=== PATIENT | male | born 1975 | race African-American/Black ===

== ENCOUNTER 2021-07-28 08:49 | Emergency (ER) | payer OTHER, SELFPAY ==
[2021-07-28] VITALS (12 sets, daily range): BP systolic 130–147; BP diastolic 80–84; PULSE 44–98; RESP 14–20; TEMP 36.2; O2SAT 96–100; BMI 24.3
--- NOTE | 2021-07-28 08:56 | ED.ABDPAIN ---
HPI - Abdominal Pain General Chief Complaint: Abdominal Pain Stated Complaint: abdobinal pain Time Seen by Provider: 07/28/21 08:54 History of Present Illness HPI narrative: Patient is a 46-year-old male with history of hypertension presenting today with severe left sided abdominal pain. This is actually started yesterday progressively has gotten worse. Does seem come in waves he has got some left flank pain but no radiation his groin. He vomited once in route with EMS. Pain seems to be uncontrollable. He has not had his bowel movement today but had 1 yesterday. No prior surgeries. No fever or chills. He states that he does smoke marijuana daily and has for about the last 6 months but has not been able to do so over the last couple of days. Related Data Home Medications Medication Instructions Recorded Confirmed ezetimibe 10 mg-simvastatin 20 mg 1 tab PO HS #0 05/05/16 tablet (Vytorin) Previous Rx's Medication Instructions Recorded meclizine 25 mg chewable tablet 25 mg PO Q6HP PRN #20 05/05/16 (Bonine) hydrocodone 5 mg-acetaminophen 325 1 tab PO Q6H PRN #10 tab 07/28/21 mg tablet ondansetron 4 mg disintegrating 4 mg PO Q8H PRN #10 tab 07/28/21 tablet Allergies Allergy/AdvReac Type Severity Reaction Status Date / Time oxycodone [OXYCODONE] Allergy Unknown Verified 07/28/21 10:34 Review of Systems Review of Systems Narrative: GENERAL: Denies chills, fatigue, malaise, fever, sweats, travel HEENT: Denies sinus pain, ear pain, sore throat, difficulty swallowing, neck pain RESPIRATORY: Denies dyspnea, cough, wheezing, hemoptysis, sputum. CARDIOVASCULAR: Denies chest pain, palpitations, orthopnea, edema GASTROINTESTINAL: See HPI : Denies dysuria, frequency, incontinence, hematuria, urinary retention, flank pain. MUSCULOSKELETAL: Denies weakness, joint pain, or bony pain SKIN: No rash, no erythema, no pruritus NEUROLOGIC: Denies weakness, dizziness, headache, numbness, change in speech, confusion PSYCHIATRIC: No concerning psychosocial issues. 12 point review of systems is negative except for those stated above and HPI Exam Initial Vital Signs Initial Vital Signs: Vital Signs Temperature 97.1 F L 07/28/21 09:16 Pulse Rate 44 L 07/28/21 09:16 Respiratory Rate 20 07/28/21 09:16 Blood Pressure 147/84 H 07/28/21 09:16 Pulse Oximetry 100 07/28/21 09:16 GENERAL: Alert 46-year-old male appears severely uncomfortable and in pain HEENT: Head atraumatic,EOMI, pupils reactive, face symmetric, moist mucous membranes CARDIOVASCULAR: Regular rate and rhythm without murmurs, rubs or gallops. RESPIRATORY: Breath sounds equal bilaterally, no wheezes rales or rhonchi. GI: Severe left-sided pain no guarding no rebound no distension extremely tender to very light touch : Left CVA tenderness EXTREMITIES: Normal range of motion, no clubbing or edema. Neurovascularly intact NEUROLOGICAL: Alert and oriented x4.Normal gait and speech. SKIN: Warm, dry, no laceration, no petechiae, no rashes or lesions. Course Orders Ordered: ED Orders 07/28/21 11:30 Urine Microscopic Stat Discontinued Medications Hydromorphone HCl (Hydromorphone 0.5 Mg Inj) 1 mg IV NOW ONE Stop: 07/28/21 08:55 Last Admin: 07/28/21 09:32 Dose: 1 mg Documented by: NICHOLAS Sodium Chloride (Normal Saline 0.9%) 1,000 mls @ 1,000 mls/hr IV CONT SALOMÓN Last Infusion: 07/28/21 10:26 Dose: 0 mls/hr Documented by: Admin: 07/28/21 09:32 Dose: 1,000 mls/hr Documented by: NICHOLAS Sodium Chloride (Normal Saline 0.9%) 1,000 mls @ 1,000 mls/hr IV BOLUS ONE Stop: 07/28/21 11:09 Last Infusion: 07/28/21 11:56 Dose: 0 mls/hr Documented by: Admin: 07/28/21 10:26 Dose: 1,000 mls/hr Documented by: NICHOLAS Ketorolac Tromethamine (Ketorolac 30 Mg/Ml Vial) 15 mg IV NOW ONE Stop: 07/28/21 10:11 Last Admin: 07/28/21 10:26 Dose: 15 mg Documented by: NICHOLAS Vital Signs Vital signs: Vital Signs - 8 hr 07/28/21 12:30 07/28/21 12:45 07/28/21 12:47 Pulse Rate 98 H 97 H Respiratory Rate 18 Blood Pressure 130/80 Pulse Oximetry 97 98 07/28/21 12:50 Pulse Rate Respiratory Rate Blood Pressure 130/80 Pulse Oximetry MDM - Abdominal Pain Lab Data Result diagrams: 07/28/21 09:07 07/28/21 09:07 Labs: Lab Results 07/28/21 07/28/21 07/28/21 Range/Units 09:07 09:07 09:07 WBC 7.3 (4.5-11.0) X10^3/uL RBC 4.48 L (4.5-5.9) X10^6/uL Hgb 12.7 L (13.5-17.5) g/dL Hct 38.6 L (41-53) % MCV 86.2 (80-100) fL MCH 28.4 (26-34) PG MCHC 32.9 (30-36) % RDW 13.5 (11.6-14.8) % Plt Count 206 (150-400) X10^3/uL Neut % (Auto) 61.9 (50-75) % Lymph % (Auto) 31.2 (25-40) % [place] % (Auto) 5.5 (3-14) % Eos % (Auto) 0.9 L (2-4) % Baso % (Auto) 0.5 (0-2) % Neut # (Auto) 4500 (4578-6095) /uL Lymph # (Auto) 2300 (0346-6768) /uL [place] # (Auto) 400 (0-900) /uL Eos # (Auto) 100 (0-450) /uL Baso # (Auto) 0 (0-100) /uL Sodium 136 L (137-145) mmol/L Potassium 3.1 L (3.4-5.1) mmol/L Chloride 103 (98-107) mmol/L Carbon Dioxide 19 L (22-32) mmol/L BUN 14 (9-20) mg/dL Creatinine 1.40 H (0.66-1.25) mg/dL Estimated GFR > 60 (>60) mL/min BUN/Creatinine Ratio 10.0 (6-22) Glucose 186 H (70-100) mg/dL Lactate 5.4 H* (0.7-2.1) mmol/L Calcium 8.7 (8.4-10.2) mg/dL Total Bilirubin 0.5 (0.2-1.3) mg/dL AST 31 (17-59) IU/L ALT 30 (<50) IU/L Alkaline Phosphatase 59 (38-126) U/L Total Protein 6.8 (6.3-8.2) g/dL Albumin 4.1 (3.5-5.0) g/dL Globulin 2.7 (1.7-4.1) g/dL Albumin/Globulin Ratio 1.5 (1.0-2.8) Lipase 113 (23-300) U/L Urine RBC (0-5/HPF) Urine WBC (0-5/HPF) Urine Bacteria (None) Ur Culture Indicated? SARS-CoV-2 (PCR) (Negative) 07/28/21 07/28/21 07/28/21 Range/Units 09:51 11:30 11:33 WBC (4.5-11.0) X10^3/uL RBC (4.5-5.9) X10^6/uL Hgb (13.5-17.5) g/dL Hct (41-53) % MCV (80-100) fL MCH (26-34) PG MCHC (30-36) % RDW (11.6-14.8) % Plt Count (150-400) X10^3/uL Neut % (Auto) (50-75) % Lymph % (Auto) (25-40) % [place] % (Auto) (3-14) % Eos % (Auto) (2-4) % Baso % (Auto) (0-2) % Neut # (Auto) (6180-3901) /uL Lymph # (Auto) (9159-3920) /uL [place] # (Auto) (0-900) /uL Eos # (Auto) (0-450) /uL Baso # (Auto) (0-100) /uL Sodium (137-145) mmol/L Potassium (3.4-5.1) mmol/L Chloride (98-107) mmol/L Carbon Dioxide (22-32) mmol/L BUN (9-20) mg/dL Creatinine (0.66-1.25) mg/dL Estimated GFR (>60) mL/min BUN/Creatinine Ratio (6-22) Glucose (70-100) mg/dL Lactate 3.1 H (0.7-2.1) mmol/L Calcium (8.4-10.2) mg/dL Total Bilirubin (0.2-1.3) mg/dL AST (17-59) IU/L ALT (<50) IU/L Alkaline Phosphatase (38-126) U/L Total Protein (6.3-8.2) g/dL Albumin (3.5-5.0) g/dL Globulin (1.7-4.1) g/dL Albumin/Globulin Ratio (1.0-2.8) Lipase (23-300) U/L Urine RBC 10-30/hpf H (0-5/HPF) Urine WBC None seen (0-5/HPF) Urine Bacteria None seen (None) Ur Culture Indicated? Cult not indicated SARS-CoV-2 (PCR) Negative (Negative) Point of care testing: Urine Dip Bedside Urine Glucose 100 mg/dl Bedside Urine Bilirubin - Negative Bedside Urine Ketone +/- 5 Urine Specific [place] 1.010 Bedside Urine pH 6.5 Bedside Urine Protein +++ 300 Bedside Urine Urobilinogen - Negative Bedside Urine Nitrite - Negative Bedside Urine Leukocytes - Negative Esterase Imaging Data CT scan - abdomen/pelvis: Radiologist's Impression: Patient: Marbin Peralta MR#: [id number] : 1975 Acct:[id number] Age/Sex: 46 / M Date of Service: 07/28/21 Loc: ED Accession Number: [id number] ?? Procedure: CT abdomen pelvis w con Ordering Provider: Colleen Garber D.O. PROCEDURE:? CT ABDOMEN PELVIS W CON ? INDICATIONS:? severe left sided pain sudden onset ? TECHNIQUE:? After the administration of oral and IV contrast, axial sections were acquired from the lung bases to the pubic symphysis.? Coronal and sagittal reformats were performed.? For radiation dose reduction, the following was used:? automated exposure control, adjustment of mA and/or kV according to patient size. ? COMPARISON:? None. ? FINDINGS:? Image quality:? Excellent.? ? Lung bases:? Unremarkable.? ? Heart:? No significant findings. ? ? ABDOMEN: Liver:? Normal contour and enhancement.? Scattered hypoattenuating lesions are seen measuring up to 1 cm, most consistent with cysts.? ? Gallbladder:? Unremarkable.? ? Biliary ducts:? Unremarkable.? ? Pancreas:? Unremarkable.? ? Spleen:? Unremarkable.? ? Adrenal Glands:? Unremarkable.? ? Kidneys and Ureters:? Punctate calculus in the left lower pole (measuring less than 3 mm).? Delayed left nephrogram with hydronephrosis and perinephric stranding as well as hydroureter.? A 3 mm calculus is seen in the distal left ureter, just prior to the UVJ. Normal enhancement of the right kidney without evidence of nephrolithiasis or obstructive uropathy. ? Stomach and Bowel:? No evidence of intestinal obstruction or inflammatory change.? Normal appearance of the appendix. Peritoneum:? No abnormal intraperitoneal fluid.? No free air.? ? Ventral Wall: ? No hernia.? Abdominal Nodes:? No retroperitoneal or mesenteric adenopathy by size criteria.? Vessels:? Aorta and inferior vena cava are normal in size.? ? PELVIS: Pelvic Organs:? Unremarkable.? ? Bladder:? Unremarkable.? ? Pelvic Nodes: No enlarged lymph nodes.? Miscellaneous:? Bilateral fat containing inguinal hernias versus lipomas of the spermatic cord. ? ? A 1.3 x 0.5 cm fat attenuation lesion is seen in the right psoas, compatible intramuscular hematoma. ? Bones:? Unremarkable.? IMPRESSION:? ? 1. Left hydronephrosis and perinephric stranding with 3 mm calculus in the distal ureter. ? ? Dictated by: Desmond Chew M.D. on 07/28/2021 at 9:30 ? ? MDM Narrative Medical decision making narrative: Patient is in quite a bit of pain initially is given dilaudid. CT does confirm a 3 mm left-sided kidney stone. Lactate is concerning an elevated at 5.4 , it has improved with 2 L of fluid to 3.1. Patient overall appears very well. He has no leukocytosis he is afebrile he has no UTI. Pain actually improved from most with Toradol. I think lactate is more elevated is from severe pain rather than sepsis in infection. He feels comfortable going home at this time. Discharge Plan Departure Patient Disposition: Home Clinical Impression: Kidney stone on left side Instructions: DI for Kidney Stones Activity Restrictions/Additional Instructions: * You've been diagnosed with kidney stone * What to do: Increase fluid intake, Strain urine, try to catch stone * Please follow-up with your primary care provider in the next 2-3 days, you may require urology consultation please discuss this with -If you should have fever, or pain is uncontrolled with medication at home or any other concerning symptoms return to ER for further evaluation MEDICATIONS Take Motrin 800 mg every 8 hours as needed for pain, Next dose at 6pm Take Sh[place]ler every 6 hours if needed for severe pain Take Zofran every 4-6 hours if needed for nausea CONTROLLED SUBSTANCE DISCHARGE (Narcotoic/benzodiazepine) 1. You have been prescribed narcotic medications, it does have acetaminophen/Tylenol/paracetamol in it so do not take extra Tylenol or Tylenol containing products 2. Please understand that we cannot provide further refills of narcotics, benzodiazepines or controlled substances through the ED and her pain management will need to be through your provider. 3. While on these medications you cannot drive or operate heavy machinery. 4. You cannot sign legal documents or perform any duties such as this. 5. As long as you're taking opiate pain medications he should also be taking a stool softener such as Colace, Dulcolax, MiraLAX or prune juice, to help avoid constipation. Prescriptions: New hydrocodone-acetaminophen 5-325 mg tablet 1 tab PO Q6H PRN (Reason: pain) Qty: 10 0RF ondansetron 4 mg tablet,disintegrating 4 mg PO Q8H PRN (Reason: nausea and vomiting) Qty: 10 0RF No Action ezetimibe-simvastatin [Vytorin 10-20] 10 MG/20 MG tablet 1 tab PO HS Qty: 0 0RF meclizine [Bonine] 25 MG tablet,chewable 25 mg PO Q6HP PRNQty: 20 0RF
--- NOTE | 2021-07-28 09:13 | DI.CT.S_ITS ---
PROCEDURE: CT ABDOMEN PELVIS W CON INDICATIONS: severe left sided pain sudden onset TECHNIQUE: After the administration of oral and IV contrast, axial sections were acquired from the lung bases to the pubic symphysis. Coronal and sagittal reformats were performed. For radiation dose reduction, the following was used: automated exposure control, adjustment of mA and/or kV according to patient size. COMPARISON: None. FINDINGS: Image quality: Excellent. Lung bases: Unremarkable. Heart: No significant findings. ABDOMEN: Liver: Normal contour and enhancement. Scattered hypoattenuating lesions are seen measuring up to 1 cm, most consistent with cysts. Gallbladder: Unremarkable. Biliary ducts: Unremarkable. Pancreas: Unremarkable. Spleen: Unremarkable. Adrenal Glands: Unremarkable. Kidneys and Ureters: Punctate calculus in the left lower pole (measuring less than 3 mm). Delayed left nephrogram with hydronephrosis and perinephric stranding as well as hydroureter. A 3 mm calculus is seen in the distal left ureter, just prior to the UVJ. Normal enhancement of the right kidney without evidence of nephrolithiasis or obstructive uropathy. Stomach and Bowel: No evidence of intestinal obstruction or inflammatory change. Normal appearance of the appendix. Peritoneum: No abnormal intraperitoneal fluid. No free air. Ventral Wall: No hernia. Abdominal Nodes: No retroperitoneal or mesenteric adenopathy by size criteria. Vessels: Aorta and inferior vena cava are normal in size. PELVIS: Pelvic Organs: Unremarkable. Bladder: Unremarkable. Pelvic Nodes: No enlarged lymph nodes. Miscellaneous: Bilateral fat containing inguinal hernias versus lipomas of the spermatic cord. A 1.3 x 0.5 cm fat attenuation lesion is seen in the right psoas, compatible intramuscular hematoma. Bones: Unremarkable. IMPRESSION: 1. Left hydronephrosis and perinephric stranding with 3 mm calculus in the distal ureter. Dictated by: Desmond Chew M.D. on 07/28/2021 at 9:30 Approved by: Desmond Chew M.D. on 07/28/2021 at 9:35
[2021-07-28 09:26] LABS: Add Manual Diff / Slide Review NO; Basophils Absolute Auto 0 /uL (0-100); Basophils Percent Auto 0.5 % (0-2); Eosinophils Absolute Auto 100 /uL (0-450); Eosinophils Percent Auto 0.9 % (2-4); Hematocrit 38.6 % (41-53); Hemoglobin 12.7 g/dL (13.5-17.5); Lymphocytes Absolute Auto 2300 /uL (1100-4500); Lymphocytes Percent Auto 31.2 % (25-40); Mean Corpuscular HGB Conc 32.9 % (30-36); Mean Corpuscular Hemoglobin 28.4 PG (26-34); Mean Corpuscular Volume 86.2 fL (80-100); Monocytes Absolute Auto 400 /uL (0-900); Monocytes Percent Auto 5.5 % (3-14); Neutrophils Absolute Auto 4500 /uL (1500-7000); Neutrophils Percent Auto 61.9 % (50-75); Platelet Count 206 X10^3/uL (150-400); Red Blood Cell Count 4.48 X10^6/uL (4.5-5.9); Red Cell Distribution Width 13.5 % (11.6-14.8); White Blood Cell Count 7.3 X10^3/uL (4.5-11.0)
[2021-07-28] MEDS: SODIUM CHLORIDE 0.9% 1,000 ML 1000 ML IV ×2 (09:32→10:26)
[2021-07-28] MEDS: HYDROMORPHONE 0.5 MG INJ 1 MG IV (09:32)
[2021-07-28 09:35] LABS: Alanine Aminotransferase 30 IU/L (<50); Albumin 4.1 g/dL (3.5-5.0); Albumin Globulin Ratio 1.5 (1.0-2.8); Alkaline Phosphatase 59 U/L (38-126); Aspartate Aminotransferase 31 IU/L (17-59); Bilirubin Total 0.5 mg/dL (0.2-1.3); Blood Urea Nitrogen 14 mg/dL (9-20); Calcium 8.7 mg/dL (8.4-10.2); Carbon Dioxide 19 mmol/L (22-32); Chloride 103 mmol/L (98-107); Estimated Glomerular Filt Rate > 60 mL/min (>60); Globulin 2.7 g/dL (1.7-4.1); Glucose 186 mg/dL (70-100); HEMOLYSIS < 15 (0-50); Lipase 113 U/L (23-300); Potassium 3.1 mmol/L (3.4-5.1); Sodium 136 mmol/L (137-145); Total Protein 6.8 g/dL (6.3-8.2)
[2021-07-28 09:37] LABS: Lactate (Lactic Acid) 5.4 mmol/L (0.7-2.1)
[2021-07-28 10:10] LABS: COVID19 -Nasal RAPID Negative (Negative)
[2021-07-28] MEDS: KETOROLAC 30 MG/ML VIAL 15 MG IV (10:26)
[2021-07-28 11:21] LABS: Reflexed Lactate in 2 Hours Y
[2021-07-28 11:49] LABS: Lactate 2HR (Lactic Acid Rflx) 3.1 mmol/L (0.7-2.1)
[2021-07-28 12:10] LABS: Bacteria Urine None Seen; Culture Indicated Urine Cult Not Indicated; RBC Urine 10-30/HPF (0-5/HPF); WBC Urine None Seen (0-5/HPF)
== END 2021-07-28 12:50 | disposition home or self-care (01) ==
PROVIDERS: Emergency Provider Emergency Medicine
DX: N20.0 Calculus of kidney (principal); R11.10 Vomiting, unspecified; Z20.822 Contact with and (suspected) exposure to COVID-19
CPT/HCPCS: 36415; 74177; 80053; 81003; 81015; 83605; 83690; 85025; 87635; 96361; 96374; 96375; 99284; C9803; J1170; J1885

== ENCOUNTER → 2021-12-07 12:16 | Outpatient (CLI) | payer OTHER, SELFPAY ==
--- NOTE | 2021-12-07 12:23 | DI.RAD.S_ITS ---
PROCEDURE: XR KUB INDICATIONS: Kidney stone LEFT SIDE TECHNIQUE: One view of the abdomen acquired. COMPARISON: [facility], CT, CT ABDOMEN PELVIS W CON, 07/28/2021, 9:06. FINDINGS: Surgical changes and devices: None. Bowel: Bowel gas pattern is normal. Soft tissues: No suspicious abdominal calcifications. Visualized solid organ contours appear normal in size. Bones: No suspicious bony lesions. IMPRESSION: 1. Nonspecific bowel gas pattern. 2. No definite pathologic calcifications identified. Dictated by: Pablo Millard M.D. on 12/07/2021 at 14:15 Approved by: Pablo Millard M.D. on 12/07/2021 at 14:19
== END ==
PROVIDERS: Referring Provider Urology; Visit Provider Urology
DX: N20.0 Calculus of kidney (principal)
CPT/HCPCS: 74018

== ENCOUNTER → 2021-12-09 12:49 | Outpatient (CLI) | payer OTHER, SELFPAY ==
[2021-12-14 15:10] LABS: Ca oxalate dihydrate 70 % (.); Ca oxalate monohydr 25 % (.); Hydroxyapatite 5 % (.); Size 5x3 mm (.)
== END ==
PROVIDERS: Visit Provider Urology
DX: N20.0 Calculus of kidney (principal); R31.29 Other microscopic hematuria; R19.5 Other fecal abnormalities; R10.32 Left lower quadrant pain; R11.0 Nausea
CPT/HCPCS: 82365; 99214

== ENCOUNTER → 2021-12-31 12:00 | Outpatient (CLI) | payer OTHER, SELFPAY ==
--- NOTE | 2021-12-31 12:01 | DI.CT.S_ITS ---
PROCEDURE: CT IVP A/P W/WO INDICATIONS: Kidney stone TECHNIQUE: Optional 5 mm thick noncontrast images acquired from the diaphragm to the symphysis pubis. After the administration of intravenous contrast, 5 mm thick images acquired from the diaphragm to the symphysis pubis after a 10-minute delay. 2 mm thick coronal and sagittal reformats were then performed of the kidneys and ureters. For radiation dose reduction, the following was used: automated exposure control, adjustment of mA and/or kV according to patient size. COMPARISON: None. FINDINGS: Image quality: Excellent. Lung bases: Lung bases are clear. Heart size is normal. Urinary system: Both kidneys are normal in size, without hydronephrosis. There is a 2 mm nonobstructing left middle pole renal stone. There is a faint 1 mm nonobstructing right lower pole stone. No perinephric fat stranding. There is normal bilateral renal enhancement. Renal calyces appear normal in morphology when filled with contrast. Opacified portions of both ureters demonstrate normal caliber. Bladder wall thickness is normal. No calcified bladder stones. Other solid organs: Liver is normal in size and enhancement. Tiny low-density liver lesions are consistent with cysts versus hemangiomata. No suspicious liver lesions. Gallbladder is unremarkable. Biliary system is non dilated. Pancreas enhances normally. Spleen is normal in size and enhancement. No adrenal nodules. Peritoneum and bowel: Bowel loops demonstrate normal wall thickness and caliber. No free fluid or air. Nodes and vessels: No retroperitoneal or mesenteric adenopathy by size criteria. Aorta and inferior vena cava are normal in size. Abdominal wall: No ventral hernias. Pelvis: No pathologic free pelvic fluid. No inguinal hernias or adenopathy. Bones: No suspicious bony lesions. No vertebral body compression fractures. IMPRESSION: 1. 2 mm left renal stone and 1 mm right renal stone. 2. Otherwise unremarkable CT IVP with no ureteral stones, hydronephrosis, or findings worrisome for malignancy. 3. No evidence of acute abdominal process. Dictated by: Francesco Pelayo M.D. on 12/31/2021 at 14:44 Approved by: Francesco Pelayo M.D. on 12/31/2021 at 14:49
== END ==
PROVIDERS: Referring Provider Urology; Visit Provider Urology
DX: N20.0 Calculus of kidney (principal); R31.29 Other microscopic hematuria; Z87.442 Personal history of urinary calculi
CPT/HCPCS: 74178; Q9967

== ENCOUNTER → 2022-02-28 13:15 | Outpatient (CLI) | payer OTHER, SELFPAY ==
[2022-02-28 17:14] LABS: Calcium 8.9 mg/dL (8.4-10.2); Uric Acid 4.8 mg/dL (3.5-8.5)
[2022-03-02 21:33] LABS: Calcium 8.9 mg/dL (8.7-10.2); Parathyroid Hormone, Intact 69 pg/mL (15-65)
== END ==
PROVIDERS: Referring Provider Urology; Visit Provider Urology
DX: N20.0 Calculus of kidney (principal); R31.29 Other microscopic hematuria; Z87.442 Personal history of urinary calculi
CPT/HCPCS: 36415; 82310; 83970; 84550

== ENCOUNTER → 2022-03-07 11:46 | Outpatient (CLI) | payer OTHER, SELFPAY ==
[2022-03-09 18:19] LABS: Calcium 9.2 mg/dL (8.7-10.2); Parathyroid Hormone, Intact 46 pg/mL (15-65)
== END ==
PROVIDERS: Referring Provider Urology; Visit Provider Urology
DX: E34.9 Endocrine disorder, unspecified (principal)
CPT/HCPCS: 36415; 82310; 83970